=== PATIENT | male | born 1955 | race Caucasian/White ===

== ENCOUNTER 2019-10-27 08:17 | Inpatient (IN) | payer OTHER, SELFPAY ==
[2019-10-27 08:43] LABS: #Basophils 0.1 thou/uL (0.0-0.2); #Eosinphils 0.3 thou/uL (0.0-0.7); #Lymphocytes 2.6 thou/uL (1.20-3.40); #Monocytes 0.6 thou/uL (0.11-0.59); #Neutrophils 10.7 thou/uL (1.40-6.50); %Basophils 0.4 % (0.0-1.0); %Lymphocytes 18.4 % (21.0-51.0); %Monocytes 4.1 % (0.0-10.0); %Neutrophils 75.1 % (42.0-75.0); Hemoglobin 17.4 g/dL (14.0-18.0); Mean Corpuscular HGB CONC 33.6 g/dL (32.0-36.0); Mean Corpuscular Volume 92.3 fL (78.0-98.0); Mean Platelet Volume 8.5 fL (7.4-10.4); Platelet Count 180 thou/uL (130-400); RBC Distribution Width 11.9 % (11.5-14.5); Red Blood Cell (RBC) Count 5.62 mill/uL (4.70-6.10); White Blood Cell (WBC) Count 14.2 thou/uL (4.8-10.8)
[2019-10-27] MEDS ORDERED: Ondansetron PF 4 MG/2 ML Vial ONE (09:00)
[2019-10-27] MEDS ORDERED: Fentanyl 100 MCG/2 ML VIAL ONE (09:00)
[2019-10-27 09:04] LABS: ALT (SGPT) 39 U/L (8-55); AST (SGOT) 40 U/L (5-34); Albumin 3.9 g/dL (3.4-4.8); Alkaline Phosphatase 86 U/L (40-110); Anion Gap 13 mmol/L (10-20); BUN (Urea Nitrogen) 18 mg/dL (8.4-25.7); Bilirubin, Total 0.9 mg/dL (0.2-1.2); Calc. Creatinine Clearance 0 mL/min (70-130); Calcium 9.2 mg/dL (7.8-10.44); Carbon Dioxide 26 mmol/L (23-31); Chloride 105 mmol/L (98-107); Estimated GFR-MDRD 56; Glucose 141 mg/dL (80-115); Potassium 4.6 mmol/L (3.5-5.1); Protein, Total 6.9 g/dL (5.8-8.1); Sodium 139 mmol/L (136-145)
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
[2019-10-27] MEDS ORDERED: Dextrose 50% Abboject 50 ML SYRINGE SLOW IVP PRN (09:32)
[2019-10-27] MEDS ORDERED: Ondansetron PF 4 MG/2 ML Vial IVP PRN (09:32)
[2019-10-27] MEDS ORDERED: Ondansetron ODT 4 MG TAB PO PRN (09:32)
[2019-10-27] MEDS ORDERED: Dextrose 5% in Water 1,000 ML IV PRN (09:32)
[2019-10-27] MEDS ORDERED: Rib Fracture Protocol PO SCH (09:45)
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
[2019-10-27] MEDS ORDERED: Cyclobenzaprine 10 MG TAB PO PRN (10:30)
[2019-10-27] MEDS ORDERED: Iopamidol-370 76% 500 ML 1 ML ONE (11:50)
[2019-10-27 12:48] VITALS: BMI 29.9
[2019-10-27] MEDS: traMADol HCl 50 MG TAB PO SCH ×3 (12:51→23:43)
[2019-10-27] MEDS: Ibuprofen 800 MG TAB PO SCH ×3 (12:53→23:43)
[2019-10-27] MEDS: Acetaminophen 500 MG TAB PO SCH ×3 (12:53→23:43)
[2019-10-27] MEDS: Gabapentin 300 MG CAP PO SCH ×2 (15:03→20:50)
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
[2019-10-27] MEDS: Enoxaparin Sodium 40 MG/0.4 ML SYRINGE SC SCH (20:49)
[2019-10-27] MEDS: Senokot S 8.6-50 MG TAB PO SCH (20:50)
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
[2019-10-28] MEDS: Acetaminophen 500 MG TAB PO SCH ×4 (05:16→23:37)
[2019-10-28] MEDS: Ibuprofen 800 MG TAB PO SCH ×4 (05:16→21:33)
[2019-10-28] MEDS: traMADol HCl 50 MG TAB PO SCH ×4 (05:17→21:51)
[2019-10-28] MEDS: Gabapentin 300 MG CAP PO SCH ×3 (08:17→21:33)
[2019-10-28] MEDS: Polyethylene Glycol 3350 17 GM Packet PO SCH (08:17)
[2019-10-28] MEDS: Senokot S 8.6-50 MG TAB PO SCH ×2 (08:17→21:33)
[2019-10-28] MEDS ORDERED: Cyclobenzaprine 10 MG TAB PO PRN (15:41)
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
[2019-10-28] MEDS: Enoxaparin Sodium 40 MG/0.4 ML SYRINGE SC SCH (21:33)
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
[2019-10-29] MEDS: traMADol HCl 50 MG TAB PO SCH ×4 (03:43→23:36)
[2019-10-29] MEDS: Acetaminophen 500 MG TAB PO SCH ×4 (05:34→23:36)
[2019-10-29] MEDS ORDERED: traMADol HCl 50 MG TAB PO PRN (08:47)
[2019-10-29] MEDS: Ibuprofen 800 MG TAB PO SCH ×3 (08:56→21:20)
[2019-10-29] MEDS: Gabapentin 300 MG CAP PO SCH ×2 (08:57→21:20)
[2019-10-29] MEDS: Senokot S 8.6-50 MG TAB PO SCH ×2 (08:58→21:20)
[2019-10-29] MEDS: Polyethylene Glycol 3350 17 GM Packet PO SCH (08:58)
[2019-10-29] MEDS ORDERED: Ketorolac Tromethamine 30 MG/ML VIAL IVP SCH (09:00)
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
[2019-10-29] MEDS: Enoxaparin Sodium 40 MG/0.4 ML SYRINGE SC SCH (21:20)
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
[2019-10-30] MEDS: traMADol HCl 50 MG TAB PO SCH ×2 (05:40→12:58)
[2019-10-30] MEDS: Acetaminophen 500 MG TAB PO SCH ×2 (05:40→12:58)
[2019-10-30 08:04] VITALS: TEMP 98.5
[2019-10-30] MEDS: Senokot S 8.6-50 MG TAB PO SCH (08:29)
[2019-10-30] MEDS: Gabapentin 300 MG CAP PO SCH (08:29)
[2019-10-30] MEDS: Polyethylene Glycol 3350 17 GM Packet PO SCH (08:30)
[2019-10-30] MEDS: Ibuprofen 800 MG TAB PO SCH (08:30)
[2019-10-30 12:03] VITALS: BP 125/71
== END 2019-10-30 14:23 | disposition home or self-care (01) | DRG 184 ==
LOC: ERS 08:17 → SURG A 09:46
PROVIDERS: ADMIT Surgery; ATTEND Surgery
DX: S22.42XA Multiple fractures of ribs, left side, initial encounter for closed fracture (principal); S22.088A Other fracture of T11-T12 vertebra, initial encounter for closed fracture; S32.028A Other fracture of second lumbar vertebra, initial encounter for closed fracture; S32.018A Other fracture of first lumbar vertebra, initial encounter for closed fracture; R40.2412 Glasgow coma scale score 13-15, at arrival to emergency department; F41.9 Anxiety disorder, unspecified; V39.50XA Passenger in three-wheeled motor vehicle injured in collision with unspecified motor vehicles in traffic accident, initial encounter
CPT/HCPCS: 70450; 71260; 72125; 74177; 80053; 85025; 94640; G0390; J1650; J1885; J2405; J3010; J7620; Q9967

== ENCOUNTER 2019-11-13 15:38 | Outpatient (CLI) | payer OTHER ==
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
== END 2019-11-13 15:39 | disposition home or self-care (01) ==
LOC: BICRAD 15:38
PROVIDERS: ATTEND Physician Assistant
DX: S22.42XD Multiple fractures of ribs, left side, subsequent encounter for fracture with routine healing (principal); S22.089D Unspecified fracture of T11-T12 vertebra, subsequent encounter for fracture with routine healing; S32.029D Unspecified fracture of second lumbar vertebra, subsequent encounter for fracture with routine healing; J90 Pleural effusion, not elsewhere classified; R91.8 Other nonspecific abnormal finding of lung field; V89.2XXD Person injured in unspecified motor-vehicle accident, traffic, subsequent encounter
CPT/HCPCS: 71046

== ENCOUNTER 2019-12-03 12:36 | Outpatient (CLI) | payer OTHER ==
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
== END 2019-12-03 12:37 | disposition home or self-care (01) ==
LOC: TBSIIMAG 12:36
PROVIDERS: ATTEND Physician Assistant
DX: S22.080A Wedge compression fracture of T11-T12 vertebra, initial encounter for closed fracture (principal); S32.010A Wedge compression fracture of first lumbar vertebra, initial encounter for closed fracture; S32.020A Wedge compression fracture of second lumbar vertebra, initial encounter for closed fracture; R29.890 Loss of height
CPT/HCPCS: 72070

== ENCOUNTER 2019-12-31 09:52 | Outpatient (CLI) | payer OTHER ==
--- NOTE | 2019-12-31 10:40 | RAD ---
Exam: Thoracic spine radiograph 3 views Comparison 12/03/2019 HISTORY: Thoracic spine fracture. FINDINGS: AP, swimmer's and lateral view of the thoracic spine redemonstrate a T12 compression fractu re. Stable moderate loss of vertebral body height. Stable mild retropulsion. Additional fractures are not appreciated. Stable degenerative changes of the thoracic spine. Irregularities at L1 and L2 a re less evident on the current radiograph due to technique. IMPRESSION: Stable T12 compression fracture. There is no significant loss of vertebral body height si nce the previous exam. Currently, there is 50% loss of vertebral body height.
== END 2019-12-31 09:53 | disposition home or self-care (01) ==
LOC: TBSIIMAG 09:52
PROVIDERS: ATTEND Physician Assistant
DX: S22.089A Unspecified fracture of T11-T12 vertebra, initial encounter for closed fracture (principal)
CPT/HCPCS: 72070

== ENCOUNTER 2020-01-28 12:23 | Outpatient (CLI) | payer BC, OTHER ==
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
== END 2020-01-28 12:24 | disposition home or self-care (01) ==
LOC: TBSIIMAG 12:23
PROVIDERS: ATTEND Neurological Surgery
DX: M48.56XA Collapsed vertebra, not elsewhere classified, lumbar region, initial encounter for fracture (principal); S22.089D Unspecified fracture of T11-T12 vertebra, subsequent encounter for fracture with routine healing
CPT/HCPCS: 72070